=== PATIENT | female | born 1970 | race Caucasian/White ===

== ENCOUNTER → 2024-02-24 08:24 | Outpatient (REF) | payer BC, SELFPAY | LOC: RAD 08:24 | PROVIDERS: ATTENDING PHYSICIAN Specialist | DX: N95.0 Postmenopausal bleeding (principal); N84.1 Polyp of cervix uteri | CPT/HCPCS: 76830; 76856 ==

== ENCOUNTER → 2024-05-04 14:44 | Outpatient (REF) | payer BC, SELFPAY | LOC: WDC 14:44 | PROVIDERS: ATTENDING PHYSICIAN Specialist | DX: Z12.31 Encounter for screening mammogram for malignant neoplasm of breast (principal) | CPT/HCPCS: 77063; 77067 ==

== ENCOUNTER → 2024-05-13 09:13 | Outpatient (REF) | payer BC, SELFPAY | LOC: WDC 09:13 | PROVIDERS: ATTENDING PHYSICIAN Specialist | DX: R92.8 Other abnormal and inconclusive findings on diagnostic imaging of breast (principal) | CPT/HCPCS: 76642 ==